=== PATIENT | male | born 1980 | race Caucasian/White ===

== ENCOUNTER → 2018-02-07 | Outpatient (CLI) | payer OTHER | LOC: BMCIMAGING 09:18 | PROVIDERS: ATTEND Emergency Medicine | DX: M79.671 Pain in right foot (principal); Y93.02 Activity, running ==

== ENCOUNTER → 2018-10-01 | Outpatient (CLI) | payer OTHER | LOC: BMCIMAGING 10:48 | PROVIDERS: ATTEND Emergency Medicine | DX: M25.561 Pain in right knee (principal); Z53.29 Procedure and treatment not carried out because of patient's decision for other reasons ==